=== PATIENT | male | born 1970 | race Caucasian/White ===

== ENCOUNTER 2018-03-06 12:23 | Emergency (ER) | payer OTHER ==
[2018-03-06 12:44] VITALS: RESP 18
[2018-03-06 13:40] VITALS: PULSE 63
[2018-03-06 13:46] LABS: Basophils % (A) 0 %; Eosinophils # (A) 0.2 k/uL (0-0.7); Eosinophils % (A) 2 %; HCT 43.6 % (39.0-53.0); HGB 15.3 gm/dL (13.0-17.5); Lymphocytes # (A) 1.5 k/uL (1.0-4.8); Lymphocytes % (A) 20 %; MCH 30.3 pg (25.0-35.0); MCHC 35.1 g/dL (31.0-37.0); MCV 86.3 fL (80.0-100.0); Mean Platelet Volume 6.5; Monocytes # (A) 0.5 k/uL (0-1.0); Monocytes % (A) 7 %; Neutrophils # (A) 5.3 k/uL (1.3-7.7); Neutrophils % (A) 70 %; Platelet Count 303 k/uL (150-450); RBC 5.05 m/uL (4.30-5.90); RDW 12.7 % (11.5-15.5); WBC 7.6 k/uL (3.8-10.6)
--- NOTE | 2018-03-06 13:53 | XR ---
EXAMINATION TYPE: XR chest 2V DATE OF EXAM: 03/06/2018 COMPARISON: NONE HISTORY: History of pulmonary embolism with chest pain and shortness of breath. TECHNIQUE: Frontal and lateral views of the chest are obtained. FINDINGS: There is no focal air space opacity, pleural effusion, or pneumothorax seen. The cardiac silhouette size is within normal limits. The osseous structures are intact. IMPRESSION: No acute cardiopulmonary process.
[2018-03-06 14:01] LABS: D-Dimer 0.33 mg/L FEU (<0.60); Partial Thromboplastin Time 22.5 sec (22.0-30.0)
[2018-03-06 14:06] LABS: ALT 26 U/L (21-72); AST 17 U/L (17-59); Albumin 4.6 g/dL (3.5-5.0); Alkaline Phosphatase 50 U/L (38-126); Anion Gap 13 mmol/L; Blood Urea Nitrogen 14 mg/dL (9-20); Calcium 9.4 mg/dL (8.4-10.2); Carbon Dioxide 23 mmol/L (22-30); Chloride 105 mmol/L (98-107); Glucose 83 mg/dL (74-99); Magnesium 1.9 mg/dL (1.6-2.3); Potassium 4.1 mmol/L (3.5-5.1); Sodium 141 mmol/L (137-145); Total Bilirubin 0.7 mg/dL (0.2-1.3); Total Protein 7.5 g/dL (6.3-8.2)
--- NOTE | 2018-03-06 14:09 | ED ---
General Adult HPI - General Chief complaint: Extremity Problem,Nontraumatic Stated complaint: poss blood clot Time Seen by Provider: 03/06/18 12:45 Source: patient, RN notes reviewed Mode of arrival: ambulatory Limitations: no limitations - History of Present Illness Initial comments: 47-year-old male with history of factor 5 Leiden presents to the emergency department for chief complaint of right ankle swelling 1 week. Patient states he was seen by Dr. Paris in the clinic and was told to come to the emergency department to rule out DVT. 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 Patient states he also has varicose veins. Patient is supposed to be taking Xarelto daily but does not take any of his medications. Patient states he was walking today when he had some pain in his right foot as well as his chest and into his left arm. He describes the pain as a sharp pain in his chest and left arm. Patient states he has anxiety and that this is consistent with past episodes of anxiety. Patient currently denies any shortness of breath or chest pain and states he feels comfortable. He denies any fevers or chills at home. Patient denies any other complaints at this time. Patient denies any abdominal pain nausea or vomiting. - Related Data Home Medications Medication Instructions Recorded Confirmed No Known Home Medications [No 03/06/18 03/06/18 Known Home Medications] Allergies Allergy/AdvReac Type Severity Reaction Status Date / Time No Known Allergies Allergy Verified 03/06/18 13:11 Review of Systems ROS Statement: Those systems with pertinent positive or pertinent negative responses have been documented in the HPI. ROS Other: All systems not noted in ROS Statement are negative. Past Medical History Past Medical History: Hypertension, Pulmonary Embolus (PE) Additional Past Medical History / Comment(s): PE History of Any Multi-Drug Resistant Organisms: None Reported Past Surgical History: Tonsillectomy Past Psychological History: No Psychological Hx Reported Smoking Status: Never smoker Past Alcohol Use History: None Reported Past Drug Use History: None Reported General Exam Limitations: no limitations General appearance: alert, in no apparent distress (sitting in chair comfortably ) Neck exam: Present: normal inspection, full ROM. Absent: tenderness, meningismus, lymphadenopathy Respiratory exam: Present: normal lung sounds bilaterally. Absent: respiratory distress, wheezes, rales, rhonchi, stridor Cardiovascular Exam: Present: regular rate, normal rhythm, normal heart sounds. Absent: systolic murmur, diastolic murmur, rubs, gallop, clicks GI/Abdominal exam: Present: soft, normal bowel sounds. Absent: distended, tenderness, guarding, rebound, rigid Extremities exam: Present: other (There is some slight swelling in the right ankle. No pitting edema. There is some ecchymosis noted in the right lower ankle as well as varicose veins. Patient has full range of motion of the right ankle. Pedal and PT pulse 2+. Patient has some tenderness in the right calf as well. Negative Eliezer Sign. No signs of infection, spreading redness, or exudate.) Course Vital Signs 03/06/18 03/06/18 12:42 13:39 Temperature 99.5 F Pulse Rate 68 63 Respiratory 18 18 Rate Blood Pressure 155/98 148/101 O2 Sat by Pulse 98 95 Oximetry Medical Decision Making - Medical Decision Making 47-year-old male with history of factor V leiden presents to the emergency department for a chief complaint of right lower extremity swelling x 1 week. Patient was seen in a clinic and told to follow-up in the emergency department due to concern for DVT. Patient also had some atypical chest pain this morning he described as a sharp pain in his chest and left arm. Patient states he has anxiety and this is similar and consistent to past episodes. He believes this is to do with anxiety. Extremity exam showed varicose veins in the right lower ankle as well as some mild nonpitting edema. The rest of the exam was unremarkable. Cardiac profile, D-dimer, troponin, CBC, CMP, EKG, chest x-ray were unremarkable. Ultrasound showed superficial thrombophlebitis in the ankle and was negative for DVT. Patient was told to follow-up with Dr. Paris for superficial thrombophlebitis. He is to take aspirin in the meantime. He should also get back on Xarelto which he is supposed to be on as discussed. He is to return to the emergency department if he has any other worsening symptoms - Lab Data Result diagrams: 03/06/18 13:32 03/06/18 13:32 Lab Results 03/06/18 03/06/18 03/06/18 Range/Units 13:32 13:32 13:32 WBC 7.6 (3.8-10.6) k/uL RBC 5.05 (4.30-5.90) m/uL Hgb 15.3 (13.0-17.5) gm/dL Hct 43.6 (39.0-53.0) % MCV 86.3 (80.0-100.0) fL MCH 30.3 (25.0-35.0) pg MCHC 35.1 (31.0-37.0) g/dL RDW 12.7 (11.5-15.5) % Plt Count 303 (150-450) k/uL Neutrophils % 70 % Lymphocytes % 20 % Monocytes % 7 % Eosinophils % 2 % Basophils % 0 % Neutrophils # 5.3 (1.3-7.7) k/uL Lymphocytes # 1.5 (1.0-4.8) k/uL Monocytes # 0.5 (0-1.0) k/uL Eosinophils # 0.2 (0-0.7) k/uL Basophils # 0.0 (0-0.2) k/uL PT (9.0-12.0) sec INR (<1.2) APTT (22.0-30.0) sec D-Dimer (<0.60) mg/L FEU Sodium 141 (137-145) mmol/L Potassium 4.1 (3.5-5.1) mmol/L Chloride 105 (98-107) mmol/L Carbon Dioxide 23 (22-30) mmol/L Anion Gap 13 mmol/L BUN 14 (9-20) mg/dL Creatinine 0.79 (0.66-1.25) mg/dL Est GFR (CKD-EPI)AfAm >90 (>60 ml/min/1.73 sqM) Est GFR (CKD-EPI)NonAf >90 (>60 ml/min/1.73 sqM) Glucose 83 (74-99) mg/dL Calcium 9.4 (8.4-10.2) mg/dL Magnesium 1.9 (1.6-2.3) mg/dL Total Bilirubin 0.7 (0.2-1.3) mg/dL AST 17 (17-59) U/L ALT 26 (21-72) U/L Alkaline Phosphatase 50 (38-126) U/L Total Creatine Kinase 63 (55-170) U/L CK-MB (CK-2) 0.5 (0.0-2.4) ng/mL CK-MB (CK-2) Rel Index 0.8 Troponin I <0.012 (0.000-0.034) ng/mL Total Protein 7.5 (6.3-8.2) g/dL Albumin 4.6 (3.5-5.0) g/dL 03/06/18 Range/Units 13:32 WBC (3.8-10.6) k/uL RBC (4.30-5.90) m/uL Hgb (13.0-17.5) gm/dL Hct (39.0-53.0) % MCV (80.0-100.0) fL MCH (25.0-35.0) pg MCHC (31.0-37.0) g/dL RDW (11.5-15.5) % Plt Count (150-450) k/uL Neutrophils % % Lymphocytes % % Monocytes % % Eosinophils % % Basophils % % Neutrophils # (1.3-7.7) k/uL Lymphocytes # (1.0-4.8) k/uL Monocytes # (0-1.0) k/uL Eosinophils # (0-0.7) k/uL Basophils # (0-0.2) k/uL PT 10.0 (9.0-12.0) sec INR 1.0 (<1.2) APTT 22.5 (22.0-30.0) sec D-Dimer 0.33 (<0.60) mg/L FEU Sodium (137-145) mmol/L Potassium (3.5-5.1) mmol/L Chloride (98-107) mmol/L Carbon Dioxide (22-30) mmol/L Anion Gap mmol/L BUN (9-20) mg/dL Creatinine (0.66-1.25) mg/dL Est GFR (CKD-EPI)AfAm (>60 ml/min/1.73 sqM) Est GFR (CKD-EPI)NonAf (>60 ml/min/1.73 sqM) Glucose (74-99) mg/dL Calcium (8.4-10.2) mg/dL Magnesium (1.6-2.3) mg/dL Total Bilirubin (0.2-1.3) mg/dL AST (17-59) U/L ALT (21-72) U/L Alkaline Phosphatase (38-126) U/L Total Creatine Kinase (55-170) U/L CK-MB (CK-2) (0.0-2.4) ng/mL CK-MB (CK-2) Rel Index Troponin I (0.000-0.034) ng/mL Total Protein (6.3-8.2) g/dL Albumin (3.5-5.0) g/dL Disposition Clinical Impression: Superficial thrombophlebitis Disposition: HOME SELF-CARE Condition: Good Instructions: Superficial Thrombophlebitis (ED) Additional Instructions: Please follow up with primary care provider to discuss Xarelto. Return to the emergency department if you have worsening symptoms. Take Aspirin and use compression stockings as discussed. Is patient prescribed a controlled substance at d/c from ED?: No Referrals: None,Stated [Primary Care Provider] - 1-2 days Murray Paris MD [STAFF PHYSICIAN] - 1-2 days Time of Disposition: 15:40
[2018-03-06 14:12] LABS: Creatine Kinase 63 U/L (55-170)
[2018-03-06 14:26] LABS: Creatine Kinase MB 0.5 ng/mL (0.0-2.4); Troponin I <0.012 ng/mL (0.000-0.034)
--- NOTE | 2018-03-06 14:48 | US ---
EXAMINATION TYPE: US venous doppler duplex LE RT DATE OF EXAM: 03/06/2018 2:30 PM COMPARISON: NONE CLINICAL HISTORY: Pain. History of DVT, SVT, and Factor 5 SIDE PERFORMED: Right TECHNIQUE: The lower extremity deep venous system is examined utilizing real time linear array sonog matty with graded compression, doppler sonography and color-flow sonography. VESSELS IMAGED: External Iliac Vein (EIV) Common Femoral Vein Deep Femoral Vein Greater Saphenous Vein * Femoral Vein Popliteal Vein Small Saphenous Vein * Proximal Calf Veins (* superficial vessels) Grayscale, color doppler, spectral doppler imaging performed of the deep veins of the lower extremity . There is normal flow, compressibility, vascular waveforms. IMPRESSION: Right Leg: Negative for DVT Superficial thrombophlebitis seen at ankle.
[2018-03-06 16:01] VITALS: BP 141/79; TEMP 97.4
== END 2018-03-06 16:01 | disposition home or self-care (01) ==
LOC: EC 12:23
DX: I80.01 Phlebitis and thrombophlebitis of superficial vessels of right lower extremity (principal); R07.89 Other chest pain; D68.51 Activated protein C resistance; F41.9 Anxiety disorder, unspecified; I83.91 Asymptomatic varicose veins of right lower extremity; Z86.711 Personal history of pulmonary embolism
CPT/HCPCS: 36415; 71046; 80053; 82550; 82553; 83735; 84484; 85025; 85379; 85610; 85730; 93005; 99284